=== PATIENT | male | born 1950 | race African-American/Black ===

== ENCOUNTER 2016-04-27 09:20 | Inpatient (IN) | payer MEDICARE ==
[~2016-04-27] VITALS: Ht 175.3 cm; Wt 113.6 kg
[2016-04-27 09:31] LABS: GLUCOSE COMMENT 1 Doctor Notified; GLUCOSE,POINT OF CARE > 600 MG/DL (70-110)
[2016-04-27] MEDS ORDERED: SODIUM CHLORIDE 0.9% 1,000 ML IV ONE ×2 (09:45→11:00)
[2016-04-27] MEDS ORDERED: INSULIN REGULAR, HUMAN 100 UNITS/ML IVP ONE ×2 (09:45→15:15)
[2016-04-27 10:12] LABS: BASOPHILS % (AUTO) 0.2 % (0.0-2.0); EOSINOPHILS % (AUTO) 0 % (1.0-6.0); HEMATOCRIT 43.6 % (41-53); HEMOGLOBIN 14.6 g/dL (13.5-17.5); LYMPHOCYTES # (AUTO) 1.6 K/uL (1.0-4.8); MEAN CORPUSCULAR HEMOGLOBIN 30.8 pg (26.0-34.0); MEAN CORPUSCULAR HGB CONC 33.5 G/dL (31.0-37.0); MEAN CORPUSCULAR VOLUME 92 fL (80-100); MONOCYTES # (AUTO) 0.1 K/uL (0.1-1.0); MONOCYTES % (AUTO) 0.9 % (2.0-9.0); NEUTROPHILS # (AUTO) 10.3 K/uL (1.8-7.7); PLATELET COUNT (AUTO) 265 K/uL (150-450); RED BLOOD CELL COUNT(AUTO) 4.75 MIL/uL (4.50-5.90); RED CELL DISTRIBUTION WIDTH 13.1 % (11.5-14.5)
[2016-04-27 10:15] LABS: NEUTROPHILS % (AUTO) 85.9 % (40.0-70.0)
[2016-04-27 10:19] LABS: APPEARANCE,URINE CLEAR (CLEAR); GLUCOSE, URINE (UA) >=1000 mg/dL (NEGATIVE); KETONES,URINE 40 mg/dL (NEGATIVE); LEUKOCYTE ESTERASE ,URINE NEGATIVE (NEGATIVE); OCCULT BLOOD,URINE SMALL (NEGATIVE); PROTEIN,URINE TRACE (NEGATIVE)
[2016-04-27 10:22] LABS: SQUAMOUS EPITHELIAL CELL,UR Rare /LPF (None Seen); WBC,URINE None Seen /HPF (0-5)
[2016-04-27 10:34] LABS: ALANINE AMINOTRANSFERASE 82 U/L (12-78); ANION GAP 23 mmol/L (8-16); ASPARTATE AMINOTRANSFERASE 36 U/L (15-37); BILIRUBIN,TOTAL 0.9 mg/dL (0.1-1.0); CALCIUM, TOTAL 9.7 mg/dL (8.8-10.5); CARBON DIOXIDE 16 mmol/L (22-29); CHLORIDE 86 mmol/L (98-107); CREATININE 2.18 mg/dL (0.60-1.30); GLOMERULAR FILTR. RATE CALC 37 mL/min (>60); POTASSIUM 4.9 mmol/L (3.5-5.1); SODIUM SERUM 125 mmol/L (136-145); TOTAL PROTEIN, SERUM 9.4 g/dL (6.4-8.2); UREA NITROGEN, BLOOD 36 mg/dL (7-18)
[2016-04-27 10:41] LABS: GLUCOSE COMMENT 1 Doctor Notified; GLUCOSE,POINT OF CARE > 600 MG/DL (70-110)
[2016-04-27] MEDS ORDERED: INSULIN REGULAR, HUMAN 100 UNITS in SODIUM CHLORIDE 0.9% 99 ML IV SCH ×2 (11:00)
[2016-04-27 12:42] LABS: GLUCOSE COMMENT 1 Doctor Notified; GLUCOSE,POINT OF CARE 594 MG/DL (70-110)
[2016-04-27 13:21] LABS: GLUCOSE COMMENT 1 Doctor Notified; GLUCOSE,POINT OF CARE > 600 MG/DL (70-110)
[2016-04-27 14:30] VITALS: BP 160/90
[2016-04-27] MEDS ORDERED: POTASSIUM CHLORIDE 40 MEQ in SODIUM CHLORIDE 0.45% 1,000 ML IV PRN (15:01)
[2016-04-27] MEDS ORDERED: POTASSIUM CHL 20 MEQ/0.45% NS 1,000 ML IV PRN (15:01)
[2016-04-27] MEDS ORDERED: SODIUM CHLORIDE 0.9% 1,000 ML IV SCH (15:01)
[2016-04-27] MEDS ORDERED: SODIUM CHLORIDE 0.45% 1,000 ML IV PRN (15:01)
[2016-04-27] MEDS ORDERED: DEXTROSE 5%-0.45% SODIUM CHL 1,000 ML IV PRN (15:01)
[2016-04-27 15:13] LABS: ABG A-A DIFF O2 42.1 mmHg (10-20.0); ABG BASE EXCESS -11.5 mmol/L (-2.0-3.0); ABG HCO3 17.1 mmol/L (22.0-26.0); ABG OXYHEMOGLOBIN 94.2 % (94.0-100.0); ABG PCO2 24 mmHg (35-45); ABG PH 7.378 (7.35-7.450); ALLEN TEST, BLOOD GAS POSITIVE; TEMPERATURE, FAHRENHEIT, BG 98.6 FAHREN (96.0-98.6)
[2016-04-27] MEDS ORDERED: MORPHINE SULFATE 2 MG/ML SYRINGE IVP PRN (15:15)
[2016-04-27] MEDS ORDERED: ONDANSETRON HCL 4 MG/2 ML VIAL IVP PRN (15:15)
[2016-04-27] MEDS ORDERED: DEXTROSE 50%-WATER 25 GM/50 ML SYRINGE IVP PRN (15:15)
[2016-04-27 16:00] VITALS: BP 139/87
[2016-04-27 16:34] LABS: CALCIUM, TOTAL 9.6 mg/dL (8.8-10.5); POTASSIUM 4.7 mmol/L (3.5-5.1)
[2016-04-27] MEDS ORDERED: MAGNESIUM HYDROXIDE SUSPENSION 30 ML UDCUP PO PRN (16:45)
[2016-04-27] MEDS ORDERED: BISACODYL 10 MG RECTAL RECTAL SUPPOSITORY PR PRN (16:45)
[2016-04-27] MEDS ORDERED: ZOLPIDEM TARTRATE 5 MG TABLET PO PRN (16:45)
[2016-04-27] MEDS ORDERED: ACETAMINOPHEN 325 MG TABLET PO PRN (16:45)
[2016-04-27 20:00] VITALS: BP 119/76
[2016-04-27] MEDS: INSULIN REGULAR, HUMAN 100 UNITS in SODIUM CHLORIDE 0.9% 99 ML IV PRN ×2 (20:15)
[2016-04-27 20:17] LABS: CALCIUM, TOTAL 9.2 mg/dL (8.8-10.5); CREATININE 1.74 mg/dL (0.60-1.30); POTASSIUM 3.5 mmol/L (3.5-5.1)
[2016-04-27] MEDS: DOCUSATE SODIUM 100 MG CAPSULE PO SCH (21:00)
[2016-04-27 21:47] LABS: GLUCOSE,POINT OF CARE 320 MG/DL (70-110)
[2016-04-27 21:47] LABS: GLUCOSE,POINT OF CARE 155 MG/DL (70-110)
[2016-04-27 21:47] LABS: GLUCOSE COMMENT 1 Received Meds; GLUCOSE,POINT OF CARE 504 MG/DL (70-110)
[2016-04-27 21:47] LABS: GLUCOSE COMMENT 1 Received Meds; GLUCOSE,POINT OF CARE 234 MG/DL (70-110)
[2016-04-27 21:47] LABS: GLUCOSE COMMENT 1 Received Meds; GLUCOSE,POINT OF CARE 443 MG/DL (70-110)
[2016-04-27 21:47] LABS: GLUCOSE COMMENT 1 Received Meds; GLUCOSE,POINT OF CARE 427 MG/DL (70-110)
[2016-04-28] VITALS: BP 126/62
[2016-04-28] MEDS: HEPARIN SODIUM,PORCINE 5,000 UNITS/ML VIAL SQ SCH ×3 (00:16→15:58)
[2016-04-28 01:06] LABS: CREATININE 1.6 mg/dL (0.60-1.30); POTASSIUM 3.3 mmol/L (3.5-5.1)
[2016-04-28 03:14] LABS: ABG A-A DIFF O2 43.6 mmHg (10-20.0); ABG BASE EXCESS -6.4 mmol/L (-2.0-3.0); ABG HCO3 20.5 mmol/L (22.0-26.0); ABG OXYHEMOGLOBIN 93.7 % (94.0-100.0); ABG PCO2 27 mmHg (35-45); ABG PH 7.433 (7.35-7.450); ALLEN TEST, BLOOD GAS Positive; TEMPERATURE, FAHRENHEIT, BG 99.1 FAHREN (96.0-98.6)
[2016-04-28 03:37] LABS: GLUCOSE,POINT OF CARE 55 MG/DL (70-110)
[2016-04-28 03:37] LABS: GLUCOSE,POINT OF CARE 145 MG/DL (70-110)
[2016-04-28 03:37] LABS: GLUCOSE,POINT OF CARE 138 MG/DL (70-110)
[2016-04-28 03:37] LABS: GLUCOSE,POINT OF CARE 99 MG/DL (70-110)
[2016-04-28 03:41] LABS: GLUCOSE,POINT OF CARE 155 MG/DL (70-110)
[2016-04-28 04:00] VITALS: BP 132/71
[2016-04-28] MEDS: INSULIN REGULAR, HUMAN 100 UNITS in SODIUM CHLORIDE 0.9% 99 ML IV PRN ×2 (04:16)
[2016-04-28 05:57] LABS: GLUCOSE,POINT OF CARE 239 MG/DL (70-110)
[2016-04-28 05:57] LABS: GLUCOSE,POINT OF CARE 310 MG/DL (70-110)
[2016-04-28] MEDS: INSULIN REGULAR, HUMAN 100 UNITS/ML IVP PRN ×2 (06:16→07:07)
[2016-04-28 07:18] LABS: ALBUMIN 3.7 g/dL (3.4-5.0); BILIRUBIN,TOTAL 0.9 mg/dL (0.1-1.0); CALCIUM, TOTAL 8.9 mg/dL (8.8-10.5); CREATININE 1.64 mg/dL (0.60-1.30); MAGNESIUM 2.5 mg/dL (1.80-2.40); PHOSPHORUS 2.2 mg/dL (2.5-4.9); POTASSIUM 3.5 mmol/L (3.5-5.1); TOTAL PROTEIN, SERUM 8.7 g/dL (6.4-8.2)
[2016-04-28 08:00] VITALS: BP 111/68
[2016-04-28] MEDS: DOCUSATE SODIUM 100 MG CAPSULE PO SCH ×2 (08:09→21:04)
[2016-04-28] MEDS: PANTOPRAZOLE SODIUM 40 MG DR TABLET PO SCH (08:09)
[2016-04-28 10:08] LABS: CALCIUM, TOTAL 8.4 mg/dL (8.8-10.5); CREATININE 1.48 mg/dL (0.60-1.30); POTASSIUM 3.2 mmol/L (3.5-5.1)
[2016-04-28] MEDS ORDERED: DEXTROSE 50%-WATER 25 GM/50 ML SYRINGE IVP PRN (11:00)
[2016-04-28] MEDS: SODIUM CHLORIDE 0.9% 1,000 ML IV SCH ×2 (11:06→23:23)
[2016-04-28] MEDS: INSULIN ASPART 100 UNITS/ML SQ PRN ×3 (11:44→21:06)
[2016-04-28 12:00] VITALS: BP 113/65
[2016-04-28] MEDS ORDERED: POTASSIUM CHLORIDE 10% 40 MEQ/30 ML LIQUID UDCUP PO ONE (14:00)
[2016-04-28] MEDS: POTASSIUM PHOS/SODIUM PHOS MIXTURE 1 POWDER PACKET PO SCH ×2 (15:59→21:04)
[2016-04-28 16:00] VITALS: BP 146/100
[2016-04-28 18:17] LABS: GLUCOSE COMMENT 1 Received Meds; GLUCOSE,POINT OF CARE 165 MG/DL (70-110)
[2016-04-28 18:17] LABS: GLUCOSE,POINT OF CARE 278 MG/DL (70-110)
[2016-04-28 18:22] LABS: GLUCOSE COMMENT 1 Received Meds; GLUCOSE,POINT OF CARE 151 MG/DL (70-110)
[2016-04-28 18:22] LABS: GLUCOSE,POINT OF CARE 124 MG/DL (70-110)
[2016-04-28 20:00] VITALS: BP 158/80
[2016-04-28 20:27] LABS: GLUCOSE,POINT OF CARE 219 MG/DL (70-110)
[2016-04-28 20:27] LABS: GLUCOSE,POINT OF CARE 166 MG/DL (70-110)
[2016-04-28] MEDS: INSULIN DETEMIR 100 UNITS/ML SQ SCH (21:05)
[2016-04-29] VITALS (11 sets, daily range): BP systolic 111–158; BP diastolic 52–113
[2016-04-29] MEDS: HEPARIN SODIUM,PORCINE 5,000 UNITS/ML VIAL SQ SCH ×4 (00:09→23:21)
[2016-04-29 05:27] LABS: BASOPHILS % (AUTO) 0.4 % (0.0-2.0); EOSINOPHILS % (AUTO) 1.8 % (1.0-6.0); HEMATOCRIT 36.8 % (41-53); HEMOGLOBIN 12.3 g/dL (13.5-17.5); LYMPHOCYTES # (AUTO) 3.6 K/uL (1.0-4.8); LYMPHOCYTES % (AUTO) 32.9 % (22.0-44.0); MEAN CORPUSCULAR HEMOGLOBIN 30.7 pg (26.0-34.0); MEAN CORPUSCULAR HGB CONC 33.4 G/dL (31.0-37.0); MEAN CORPUSCULAR VOLUME 92 fL (80-100); MONOCYTES # (AUTO) 0.8 K/uL (0.1-1.0); NEUTROPHILS # (AUTO) 6.4 K/uL (1.8-7.7); NEUTROPHILS % (AUTO) 57.9 % (40.0-70.0); PLATELET COUNT (AUTO) 195 K/uL (150-450); RED BLOOD CELL COUNT(AUTO) 3.99 MIL/uL (4.50-5.90); RED CELL DISTRIBUTION WIDTH 13.3 % (11.5-14.5); WHITE BLOOD COUNT (AUTO) 11.1 K/uL (4.5-11.0)
[2016-04-29 05:46] LABS: ANION GAP 14 mmol/L (8-16); CALCIUM, TOTAL 7.8 mg/dL (8.8-10.5); CARBON DIOXIDE 19 mmol/L (22-29); CHLORIDE 101 mmol/L (98-107); CREATININE 1.35 mg/dL (0.60-1.30); GLOMERULAR FILTR. RATE CALC > 60 mL/min (>60); POTASSIUM 3.6 mmol/L (3.5-5.1); SODIUM SERUM 134 mmol/L (136-145); UREA NITROGEN, BLOOD 21 mg/dL (7-18)
[2016-04-29] MEDS: INSULIN ASPART 100 UNITS/ML SQ PRN ×4 (06:17→20:12)
[2016-04-29] MEDS: PANTOPRAZOLE SODIUM 40 MG DR TABLET PO SCH (08:23)
[2016-04-29] MEDS: DOCUSATE SODIUM 100 MG CAPSULE PO SCH ×2 (08:23→20:22)
[2016-04-29] MEDS: POTASSIUM PHOS/SODIUM PHOS MIXTURE 1 POWDER PACKET PO SCH ×3 (08:23→20:12)
[2016-04-29] MEDS: INSULIN DETEMIR 100 UNITS/ML SQ SCH ×2 (08:24→20:11)
[2016-04-29] MEDS: HYDROCODONE/ACETAMINOPHEN 5-325 MG TABLET PO PRN ×2 (08:59→18:05)
[2016-04-29 09:32] LABS: GLUCOSE COMMENT 1 Received Meds; GLUCOSE,POINT OF CARE 286 MG/DL (70-110)
[2016-04-29] MEDS: SODIUM CHLORIDE 0.9% 1,000 ML IV SCH (12:18)
[2016-04-29 20:57] LABS: GLUCOSE COMMENT 1 Received Meds; GLUCOSE,POINT OF CARE 356 MG/DL (70-110)
[2016-04-29 20:57] LABS: GLUCOSE COMMENT 1 Received Meds; GLUCOSE,POINT OF CARE 282 MG/DL (70-110)
[2016-04-30 04:08] VITALS: BP 147/64
[2016-04-30] MEDS: HYDROCODONE/ACETAMINOPHEN 5-325 MG TABLET PO PRN ×2 (06:11→15:20)
[2016-04-30] MEDS: INSULIN ASPART 100 UNITS/ML SQ PRN ×2 (06:13→12:26)
[2016-04-30] MEDS: SODIUM CHLORIDE 0.9% 1,000 ML IV SCH (06:17)
[2016-04-30 07:10] VITALS: BP 142/90
[2016-04-30 07:12] LABS: GLUCOSE COMMENT 1 Received Meds; GLUCOSE,POINT OF CARE 267 MG/DL (70-110)
[2016-04-30] MEDS: POTASSIUM PHOS/SODIUM PHOS MIXTURE 1 POWDER PACKET PO SCH (08:24)
[2016-04-30] MEDS: PANTOPRAZOLE SODIUM 40 MG DR TABLET PO SCH (08:24)
[2016-04-30] MEDS: DOCUSATE SODIUM 100 MG CAPSULE PO SCH (08:24)
[2016-04-30] MEDS: HEPARIN SODIUM,PORCINE 5,000 UNITS/ML VIAL SQ SCH (08:25)
[2016-04-30 08:45] LABS: BASOPHILS # (AUTO) 0.08 K/uL (0.00-0.20); BASOPHILS % (AUTO) 0.7 % (0.0-2.0); EOSINOPHILS # (AUTO) 0.12 K/uL (0.00-0.70); EOSINOPHILS % (AUTO) 1.13 % (1.0-6.0); HEMATOCRIT 34.3 % (41-53); HEMOGLOBIN 11.9 g/dL (13.5-17.5); LYMPHOCYTES # (AUTO) 1.7 K/uL (1.0-4.8); LYMPHOCYTES % (AUTO) 15.8 % (22.0-44.0); MEAN CORPUSCULAR HEMOGLOBIN 31.4 pg (26.0-34.0); MEAN CORPUSCULAR HGB CONC 34.8 G/dL (31.0-37.0); MEAN CORPUSCULAR VOLUME 90 fL (80-100); MONOCYTES # (AUTO) 1.3 K/uL (0.1-1.0); MONOCYTES % (AUTO) 12.1 % (2.0-9.0); NEUTROPHILS # (AUTO) 7.7 K/uL (1.8-7.7); NEUTROPHILS % (AUTO) 70.3 % (40.0-70.0); PLATELET COUNT (AUTO) 151 K/uL (150-450); RED CELL DISTRIBUTION WIDTH 13.2 % (11.5-14.5); WHITE BLOOD COUNT (AUTO) 10.9 K/uL (4.5-11.0)
[2016-04-30 08:56] LABS: ANION GAP 16 mmol/L (8-16); CALCIUM, TOTAL 8.2 mg/dL (8.8-10.5); CARBON DIOXIDE 18 mmol/L (22-29); CHLORIDE 101 mmol/L (98-107); GLOMERULAR FILTR. RATE CALC > 60 mL/min (>60); POTASSIUM 4.1 mmol/L (3.5-5.1); SODIUM SERUM 135 mmol/L (136-145); UREA NITROGEN, BLOOD 15 mg/dL (7-18)
[2016-04-30] MEDS: INSULIN DETEMIR 100 UNITS/ML SQ SCH (09:12)
[2016-04-30 11:00] VITALS: BP 143/82
[2016-04-30 11:47] LABS: GLUCOSE COMMENT 1 Received Meds; GLUCOSE,POINT OF CARE 328 MG/DL (70-110)
[2016-04-30 11:52] LABS: GLUCOSE,POINT OF CARE 281 MG/DL (70-110)
[2016-04-30 15:08] LABS: HEMOGLOBIN A1C 12.6 % (4.5-6.2)
[2016-04-30 15:18] VITALS: BP 155/100
[2016-04-30] MEDS ORDERED: INSU100V12 SQ (15:46)
[2016-04-30 16:31] LABS: GLUCOSE,POINT OF CARE 318 MG/DL (70-110)
[2016-04-30] MEDS ORDERED: PNEUMOCOCCAL VACCINE POLYVALENT 0.5 ML VIAL [PPSV23] IM ONE (18:15)
[2016-05-02 00:17] LABS: GLUCOSE COMMENT 1 Received Meds; GLUCOSE,POINT OF CARE 307 MG/DL (70-110)
[2016-05-02 00:17] LABS: GLUCOSE COMMENT 1 Received Meds; GLUCOSE,POINT OF CARE 348 MG/DL (70-110)
[2016-05-02 00:17] LABS: GLUCOSE COMMENT 1 Received Meds; GLUCOSE,POINT OF CARE 196 MG/DL (70-110)
[2016-05-02 00:17] LABS: GLUCOSE,POINT OF CARE 289 MG/DL (70-110)
== END 2016-04-30 17:10 | DRG 637 ==
LOC: EMS 09:26 → ICU 14:18 → 6N 04-29 15:10
PROVIDERS: ADMIT Internal Medicine; ATTEND Internal Medicine
DX: E13.10 Other specified diabetes mellitus with ketoacidosis without coma (principal); G93.41 Metabolic encephalopathy; E87.1 Hypo-osmolality and hyponatremia; N17.9 Acute kidney failure, unspecified; R47.01 Aphasia; N18.9 Chronic kidney disease, unspecified; E11.22 Type 2 diabetes mellitus with diabetic chronic kidney disease; E87.6 Hypokalemia; R53.81 Other malaise; Z91.14 Patient's other noncompliance with medication regimen; Z85.46 Personal history of malignant neoplasm of prostate
CPT/HCPCS: 70450; 70551; 82805; 82962; 83036; 83735; 84100; 87081; 93005; 96361; 96365; 96366; 96375; 99291; J1644; J1815; J2270; J3480; J7030; J7050

== ENCOUNTER 2018-06-27 03:44 | Emergency (ER) | payer MEDICARE ==
[~2018-06-27] VITALS: Ht 175.3 cm; Wt 109.1 kg
[~2018-06-27 03:44] MED LIST: INSU100V12 SQ
[2018-06-27] MEDS ORDERED: INSU100I21 SQ (03:53)
[2018-06-27 03:59] LABS: GLUCOSE,POINT OF CARE 425 MG/DL (70-110)
[2018-06-27] MEDS ORDERED: SODIUM CHLORIDE 0.9% 1,000 ML IV ONE ×2 (04:30→05:15)
[2018-06-27] MEDS ORDERED: INSULIN REGULAR, HUMAN 100 UNITS/ML IVP ONE ×2 (04:30→05:30)
[2018-06-27 04:39] LABS: EOSINOPHILS % (AUTO) 2.5 % (1.0-6.0); HEMATOCRIT 39.3 % (41-53); HEMOGLOBIN 13.2 g/dL (13.5-17.5); LYMPHOCYTES # (AUTO) 1.9 K/uL (1.0-4.8); LYMPHOCYTES % (AUTO) 30.1 % (22.0-44.0); MEAN CORPUSCULAR HEMOGLOBIN 30.6 pg (26.0-34.0); MEAN CORPUSCULAR HGB CONC 33.6 G/dL (31.0-37.0); MEAN CORPUSCULAR VOLUME 91 fL (80-100); MONOCYTES # (AUTO) 0.6 K/uL (0.1-1.0); MONOCYTES % (AUTO) 9.8 % (2.0-9.0); NEUTROPHILS # (AUTO) 3.6 K/uL (1.8-7.7); NEUTROPHILS % (AUTO) 56.6 % (40.0-70.0); PLATELET COUNT (AUTO) 307 K/uL (150-450); RED BLOOD CELL COUNT(AUTO) 4.32 MIL/uL (4.50-5.90); RED CELL DISTRIBUTION WIDTH 13.6 % (11.5-14.5)
[2018-06-27 04:51] LABS: ALBUMIN 3.9 g/dL (3.4-5.0); BILIRUBIN,TOTAL 0.5 mg/dL (0.1-1.0); CALCIUM, TOTAL 10.1 mg/dL (8.8-10.5); CREATININE 1.69 mg/dL (0.60-1.30); TOTAL PROTEIN, SERUM 8.4 g/dL (6.4-8.2)
[2018-06-27 05:34] LABS: GLUCOSE,POINT OF CARE 348 MG/DL (70-110)
[2018-06-27 06:40] LABS: GLUCOSE,POINT OF CARE 244 MG/DL (70-110)
[2018-06-27 07:10] VITALS: BP 110/60
== END 2018-06-27 07:11 | disposition home or self-care (01) ==
LOC: EMS 03:46
DX: E11.65 Type 2 diabetes mellitus with hyperglycemia (principal); I10 Essential (primary) hypertension; Z79.4 Long term (current) use of insulin
CPT/HCPCS: 36415; 80053; 82962; 83690; 84484; 85025; 96361; 96374; 96375; 99285; J1815; J7030; 82948

== ENCOUNTER 2019-05-17 05:43 | Emergency (ER) | payer MEDICARE ==
[~2019-05-17] VITALS: Ht 175.3 cm; Wt 109.1 kg
[~2019-05-17 05:43] MED LIST changes: +INSU100I21 SQ; -INSU100V12 SQ
[2019-05-17 06:03] LABS: GLUCOSE,POINT OF CARE 141 MG/DL (70-110)
[2019-05-17] MEDS ORDERED: AMLO5TAB66 PO (06:59)
[2019-05-17] MEDS ORDERED: OXYC10TA48 PO (06:59)
[2019-05-17] MEDS ORDERED: RAMI10 PO (06:59)
[2019-05-17] MEDS ORDERED: ALLO100T PO (06:59)
[2019-05-17 07:08] LABS: BASOPHILS % (AUTO) 1.3 % (0.0-2.0); EOSINOPHILS % (AUTO) 3.7 % (1.0-6.0); HEMATOCRIT 38.1 % (41-53); HEMOGLOBIN 12.6 g/dL (13.5-17.5); LYMPHOCYTES # (AUTO) 1.8 K/uL (1.0-4.8); LYMPHOCYTES % (AUTO) 28.2 % (22.0-44.0); MEAN CORPUSCULAR HEMOGLOBIN 30.7 pg (26.0-34.0); MEAN CORPUSCULAR HGB CONC 33.2 G/dL (31.0-37.0); MEAN CORPUSCULAR VOLUME 93 fL (80-100); MONOCYTES # (AUTO) 0.8 K/uL (0.1-1.0); MONOCYTES % (AUTO) 12.5 % (2.0-9.0); NEUTROPHILS # (AUTO) 3.4 K/uL (1.8-7.7); NEUTROPHILS % (AUTO) 54.3 % (40.0-70.0); PLATELET COUNT (AUTO) 314 K/uL (150-450); RED BLOOD CELL COUNT(AUTO) 4.12 MIL/uL (4.50-5.90); RED CELL DISTRIBUTION WIDTH 14.2 % (11.5-14.5)
[2019-05-17 07:17] LABS: ANION GAP 9 mmol/L (8-16); CALCIUM, TOTAL 8.9 mg/dL (8.8-10.5); CARBON DIOXIDE 26 mmol/L (22-29); CHLORIDE 100 mmol/L (98-107); CREATININE 1.38 mg/dL (0.60-1.30); GLOMERULAR FILTR. RATE CALC > 60 mL/min (>60); GLUCOSE,RANDOM 132 mg/dL (70-110); POTASSIUM 4.1 mmol/L (3.5-5.1); SODIUM SERUM 135 mmol/L (136-145); UREA NITROGEN, BLOOD 20 mg/dL (7-18)
[2019-05-17 07:24] LABS: ALANINE AMINOTRANSFERASE 55 U/L (12-78); ALBUMIN 3.6 g/dL (3.4-5.0); ALKALINE PHOSPHATASE 54 U/L (46-116); ASPARTATE AMINOTRANSFERASE 40 U/L (15-37); BILIRUBIN,TOTAL 0.3 mg/dL (0.1-1.0); TOTAL PROTEIN, SERUM 8.3 g/dL (6.4-8.2)
[2019-05-17] MEDS ORDERED: COLCHICINE 0.6 MG TABLET PO ONE (08:15)
[2019-05-17] MEDS ORDERED: KETOROLAC TROMETHAMINE 30 MG/ML VIAL IM ONE (08:15)
[2019-05-17] MEDS ORDERED: MORPHINE SULFATE 4 MG/ML SYRINGE IM ONE (10:45)
[2019-05-17] MEDS ORDERED: MORPHINE SULFATE 15 MG IR TABLET PO ONE (12:00)
[2019-05-17 12:11] VITALS: BP 154/93
== END 2019-05-17 13:58 | disposition home or self-care (01) ==
LOC: EMS 05:48
DX: M10.9 Gout, unspecified (principal); E11.9 Type 2 diabetes mellitus without complications; I10 Essential (primary) hypertension; Z85.46 Personal history of malignant neoplasm of prostate; Z79.899 Other long term (current) drug therapy
CPT/HCPCS: 36415; 73610; 73630; 80053; 82962; 84550; 85025; 96372; 99284; J1885; J2270

== ENCOUNTER 2019-10-24 16:40 | Emergency (ER) | payer MEDICARE ==
[~2019-10-24] VITALS: Ht 177.8 cm; Wt 113.6 kg
[~2019-10-24 16:40] MED LIST changes: +ALLO100T PO; +AMLO5TAB66 PO; +OXYC10TA48 PO; +RAMI10 PO
[2019-10-24] MEDS ORDERED: INSLAN SQ (16:52)
[2019-10-24] MEDS ORDERED: AMIO200T68 PO (16:52)
[2019-10-24] MEDS ORDERED: AMLO-257 PO (16:52)
[2019-10-24] MEDS ORDERED: INSNOV SQ (16:52)
[2019-10-24] MEDS ORDERED: CHOL100018 PO (16:52)
[2019-10-24] MEDS ORDERED: ISOS30TA6 PO (16:52)
[2019-10-24] MEDS ORDERED: METO50 PO (16:52)
[2019-10-24] MEDS ORDERED: CALC-911 PO (16:52)
[2019-10-24] MEDS ORDERED: INSULIN REGULAR, HUMAN 100 UNITS/ML IVP ONE ×2 (17:15→18:45)
[2019-10-24] MEDS ORDERED: SODIUM CHLORIDE 0.9% 1,000 ML IV ONE ×2 (17:15→18:45)
[2019-10-24 18:34] LABS: CALCIUM, TOTAL 9.4 mg/dL (8.8-10.5); POTASSIUM 4.3 mmol/L (3.5-5.1)
[2019-10-24 21:15] LABS: CALCIUM, TOTAL 8.6 mg/dL (8.8-10.5); CREATININE 1.71 mg/dL (0.60-1.30)
[2019-10-24 22:01] LABS: GLUCOSE,POINT OF CARE 443 MG/DL (70-110)
[2019-10-24 22:04] VITALS: BP 137/89
[2019-10-25 01:10] LABS: GLUCOSE,POINT OF CARE 352 MG/DL (70-110)
== END 2019-10-24 22:08 | disposition home or self-care (01) ==
LOC: EMS 16:42
DX: E11.65 Type 2 diabetes mellitus with hyperglycemia (principal); I10 Essential (primary) hypertension; Z79.4 Long term (current) use of insulin
CPT/HCPCS: 36415; 80048; 82962; 96361; 96374; 96376; 99284; J1815; J7030; 82948

== ENCOUNTER 2023-09-27 04:48 | Emergency (ER) | payer MEDICARE ==
[~2023-09-27] VITALS: Ht 177.8 cm; Wt 109.1 kg
[~2023-09-27 04:48] MED LIST changes: -ALLO100T PO; +AMIO200T68 PO; +AMLO-257 PO; -AMLO5TAB66 PO; +CALC-911 PO; +CHOL25TA4 PO; +INSLAN SQ; +INSNOV SQ; -INSU100I21 SQ; +ISOS30TA92 PO; +METO50 PO
[2023-09-27 04:52] VITALS: TEMP 98
[2023-09-27] MEDS ORDERED: DULA4.5P SQ (04:56)
[2023-09-27] MEDS ORDERED: TAMS0.4C94 PO (04:56)
[2023-09-27] MEDS ORDERED: SERT-439 PO (04:56)
[2023-09-27] MEDS: KETOROLAC TROMETHAMINE 60 MG/2 ML VIAL IM ONE (06:19)
[2023-09-27] MEDS: METHOCARBAMOL 500 MG TABLET PO ONE (06:20)
[2023-09-27] MEDS: OxyCODONE HCL/ACETAMINOPHEN 5-325 MG TABLET PO ONE (06:21)
[2023-09-27] MEDS ORDERED: PERCT PO (08:47)
[2023-09-27] MEDS ORDERED: IBUP-1492 PO (08:47)
[2023-09-27] MEDS ORDERED: METH-659 PO (08:47)
[2023-09-27 09:09] VITALS: BP 128/82; PULSE 84; RESP 16
== END 2023-09-27 09:12 | disposition home or self-care (01) ==
LOC: EMS 04:49
DX: S29.012A Strain of muscle and tendon of back wall of thorax, initial encounter (principal); E11.9 Type 2 diabetes mellitus without complications; I10 Essential (primary) hypertension; Z85.46 Personal history of malignant neoplasm of prostate; X58.XXXA Exposure to other specified factors, initial encounter; Y93.89 Activity, other specified; Y92.89 Other specified places as the place of occurrence of the external cause; Y99.8 Other external cause status
CPT/HCPCS: 99283; 96372; J1885

== ENCOUNTER 2023-10-19 00:34 | Emergency (ER) | payer MEDICARE ==
[~2023-10-19] VITALS: Ht 175.3 cm; Wt 104.5 kg
[~2023-10-19 00:34] MED LIST changes: -AMIO200T68 PO; -AMLO-257 PO; +DULA4.5P SQ; +IBUP-1492 PO; -INSLAN SQ; -INSNOV SQ; -ISOS30TA92 PO; +METH-659 PO; +SERT-439 PO; +TAMS0.4C94 PO
[2023-10-19 02:30] VITALS: TEMP 98.3
[2023-10-19] MEDS ORDERED: IBUP-1492 PO (02:55)
[2023-10-19] MEDS ORDERED: ACET-3385 PO (02:55)
[2023-10-19] MEDS: KETOROLAC TROMETHAMINE 30 MG/ML VIAL IM ONE (03:17)
[2023-10-19] MEDS: ACETAMINOPHEN 500 MG TABLET PO ONE (03:17)
[2023-10-19] MEDS: OxyCODONE HCL 5 MG IR TABLET PO ONE (03:17)
[2023-10-19 03:51] LABS: GLUCOMETER DEV NAME(LOC) ERT.5; GLUCOSE,POINT OF CARE 143 MG/DL (70-110)
[2023-10-19 04:30] VITALS: BP 133/89; PULSE 78; RESP 18
== END 2023-10-19 05:38 | disposition home or self-care (01) ==
LOC: EMS 00:34
DX: M10.9 Gout, unspecified (principal); E11.9 Type 2 diabetes mellitus without complications; I10 Essential (primary) hypertension; Z85.46 Personal history of malignant neoplasm of prostate
CPT/HCPCS: 99283; 82962; 96372; J1885

== ENCOUNTER 2024-08-29 19:09 | Emergency (ER) | payer MEDICARE, MEDICAID ==
[~2024-08-29] VITALS: Ht 175.3 cm; Wt 98.0 kg
[~2024-08-29 19:09] MED LIST changes: +ACET-3385 PO
[2024-08-29 19:37] VITALS: TEMP 97.9
[2024-08-29 21:35] VITALS: BP 127/84; PULSE 80; RESP 16; O2SAT 97
[2024-08-30] MEDS: PredniSONE 20 MG TABLET PO ONE
[2024-08-30] MEDS ORDERED: PRED-554 PO (00:04)
== END 2024-08-30 00:26 | disposition home or self-care (01) ==
LOC: EMS 19:10
DX: T78.40XA Allergy, unspecified, initial encounter (principal); E11.9 Type 2 diabetes mellitus without complications; I10 Essential (primary) hypertension; M10.9 Gout, unspecified; Z79.899 Other long term (current) drug therapy; X58.XXXA Exposure to other specified factors, initial encounter
CPT/HCPCS: 99291; 82962; J7512

== ENCOUNTER 2025-02-25 12:58 | Observation (INO) | payer MEDICARE, MEDICAID ==
[~2025-02-25] VITALS: Ht 177.8 cm; Wt 115.5 kg
[~2025-02-25 12:58] MED LIST changes: +PRED-554 PO
[2025-02-25 13:20] LABS: PLATELET COUNT (AUTO) 314 K/uL (150-450); RED BLOOD CELL COUNT(AUTO) 4.59 MIL/uL (4.50-5.90); RED CELL DISTRIBUTION WIDTH 13.6 % (11.5-14.5); WHITE BLOOD COUNT (AUTO) 6.0 K/uL (4.5-11.0)
[2025-02-25 13:32] LABS: CALCIUM, TOTAL 9.2 mg/dL (8.8-10.5); CREATININE 1.27 mg/dL (0.60-1.30); GLOMERULAR FILTR. RATE CALC > 60 mL/min (>60); GLUCOSE,RANDOM 122 mg/dL (70-110); SODIUM SERUM 133 mmol/L (136-145); UREA NITROGEN, BLOOD 14 mg/dL (7-18)
[2025-02-25 13:40] VITALS: PULSE 77; RESP 20; O2SAT 95
[2025-02-25] MEDS: ALBUTEROL SULFATE 2.5 MG/0.5 ML NEB SOLUTION NEB ONE (13:40)
[2025-02-25] MEDS: IPRATROPIUM BROMIDE 0.5 MG/2.5 ML NEB SOLUTION NEB ONE (13:40)
[2025-02-25] MEDS: FAMOTIDINE 20 MG/2 ML VIAL IVP ONE (13:40)
[2025-02-25 13:41] LABS: TROPONIN I-HIGH SENSITIVITY 36 ng/L (<76)
[2025-02-25 13:54] VITALS: PULSE 77; RESP 20; O2SAT 98
[2025-02-25] MEDS ORDERED: MAGNESIUM HYDROXIDE SUSPENSION 30 ML UDCUP PO PRN (15:00)
[2025-02-25] MEDS ORDERED: HYDROCODONE/ACETAMINOPHEN 5-325 MG TABLET PO PRN (15:00)
[2025-02-25] MEDS ORDERED: BISACODYL 10 MG RECTAL RECTAL SUPPOSITORY PR PRN (15:00)
[2025-02-25] MEDS ORDERED: ZOLPIDEM TARTRATE 5 MG TABLET PO PRN (15:00)
[2025-02-25] MEDS ORDERED: ONDANSETRON HCL 4 MG/2 ML VIAL IVP PRN (15:00)
[2025-02-25] MEDS ORDERED: ACETAMINOPHEN 325 MG TABLET PO PRN (15:00)
[2025-02-25] MEDS ORDERED: MORPHINE SULFATE 4 MG/ML SYRINGE IVP PRN (15:00)
[2025-02-25] MEDS: HEPARIN SODIUM,PORCINE 5,000 UNITS/ML VIAL SQ SCH (15:43)
[2025-02-25 17:15] VITALS: BP 125/87; PULSE 79; RESP 19; TEMP 98.1; O2SAT 97
[2025-02-25] MEDS ORDERED: DEXTROSE 50%-WATER 25 GM/50 ML SYRINGE IVP PRN (17:45)
[2025-02-25] MEDS: INSULIN LISPRO 100 UNITS/ML SQ PRN (17:55)
[2025-02-25] MEDS: FAMOTIDINE 20 MG/2 ML VIAL IVP SCH ×2 (20:00→20:34)
[2025-02-25] MEDS: METOPROLOL TARTRATE 50 MG TABLET PO SCH (20:29)
[2025-02-25] MEDS: DOCUSATE SODIUM 100 MG CAPSULE PO SCH (21:00)
[2025-02-26 00:03] VITALS: BP 144/90; PULSE 80; RESP 18; TEMP 98.4; O2SAT 96
[2025-02-26 04:06] VITALS: BP 150/98; PULSE 86; RESP 19; TEMP 98.1; O2SAT 97
[2025-02-26 06:21] LABS: GLUCOSE,POINT OF CARE 210 MG/DL (70-110)
[2025-02-26 06:21] LABS: GLUCOSE,POINT OF CARE 165 MG/DL (70-110)
[2025-02-26 06:42] LABS: PLATELET COUNT (AUTO) 294 K/uL (150-450); RED BLOOD CELL COUNT(AUTO) 4.35 MIL/uL (4.50-5.90); RED CELL DISTRIBUTION WIDTH 13.8 % (11.5-14.5); WHITE BLOOD COUNT (AUTO) 14.2 K/uL (4.5-11.0)
[2025-02-26 07:05] LABS: CALCIUM, TOTAL 9.1 mg/dL (8.8-10.5); CREATININE 1.44 mg/dL (0.60-1.30); GLOMERULAR FILTR. RATE CALC 58.0 mL/min (>60); GLUCOSE,RANDOM 173.0 mg/dL (70-110); SODIUM SERUM 134.0 mmol/L (136-145); UREA NITROGEN, BLOOD 18.0 mg/dL (7-18)
[2025-02-26 07:13] VITALS: BP 139/96; PULSE 84; RESP 18; TEMP 98.2; O2SAT 98
[2025-02-26 07:45] LABS: BAND NEUTROPHILS % (MANUAL) 2 % (0-5); LYMPHOCYTES % (MANUAL) 5 % (22-44); MONOCYTES % (MANUAL) 3 % (2-9); SEGMENTED NEUTROPHILS % 90 % (40-70)
[2025-02-26] MEDS: CHOLECALCIFEROL (VIT D3) 1,000 UNITS [25 MCG] TABLET PO SCH (09:11)
[2025-02-26] MEDS: CALCIUM [CALCIUM CARB 1250MG] 500 MG TABLET PO SCH (09:11)
[2025-02-26] MEDS: TAMSULOSIN HCL 0.4 MG CAPSULE PO SCH (09:11)
[2025-02-26] MEDS: PANTOPRAZOLE SODIUM 40 MG DR TABLET PO SCH (09:11)
[2025-02-26 10:30] LABS: GLUCOSE,POINT OF CARE 166 MG/DL (70-110)
[2025-02-26 10:50] VITALS: BP 133/95; PULSE 83; RESP 18; TEMP 98.1; O2SAT 98
[2025-02-26] MEDS ORDERED: PRED20TA3 PO (11:49)
[2025-02-26] MEDS ORDERED: FAMO20 PO (11:49)
[2025-02-26 13:46] LABS: GLUCOSE,POINT OF CARE 184 MG/DL (70-110)
== END 2025-02-26 13:10 | disposition home or self-care (01) ==
LOC: EMS 12:58 → EDH 14:35 → INTOOBSV 14:35 → 5N 17:05
PROVIDERS: ADMIT Internal Medicine; ATTEND Internal Medicine
DX: J96.01 Acute respiratory failure with hypoxia (principal); T63.441A Toxic effect of venom of bees, accidental (unintentional), initial encounter; I12.9 Hypertensive chronic kidney disease with stage 1 through stage 4 chronic kidney disease, or unspecified chronic kidney disease; E11.22 Type 2 diabetes mellitus with diabetic chronic kidney disease; N18.9 Chronic kidney disease, unspecified; E78.5 Hyperlipidemia, unspecified; N40.0 Benign prostatic hyperplasia without lower urinary tract symptoms; M10.9 Gout, unspecified; R07.89 Other chest pain; M79.89 Other specified soft tissue disorders; G93.41 Metabolic encephalopathy; N17.9 Acute kidney failure, unspecified; Z85.46 Personal history of malignant neoplasm of prostate; Z79.899 Other long term (current) drug therapy; Z98.890 Other specified postprocedural states; Y92.89 Other specified places as the place of occurrence of the external cause
CPT/HCPCS: 96372; 96374; 80048 ×2; 82962 ×2; 84484; 85025 ×2; 36415 ×2; 94640; 71045; 96375; 96376 ×2; 99285; 93005; 99219; J1200 ×2; J3490 ×2; J2919 ×3; J1644 ×2; J7613